=== PATIENT | female | born 1995 | race Two or more races ===

== ENCOUNTER 2021-04-17 10:11 | Emergency (ER) | payer SELFPAY ==
[~2021-04-17] VITALS: Ht 154.9 cm; Wt 52.2 kg
[2021-04-17] MEDS ORDERED: METHADONE HCL 10 MG TAB PO ONE (11:15)
[2021-04-17] MEDS ORDERED: SODIUM CHLORIDE 0.9% 1,000 ML IV ONE (11:15)
[2021-04-17] MEDS ORDERED: ONDANSETRON HCL 4 MG/2 ML VIAL IV ONE (11:15)
[2021-04-17 11:38] LABS: Basophils # (auto) 0 10 ^3/uL (0-0.2); Basophils % (auto) 0.4 % (0.0-2.0); Eosinophils # (auto) 0 10 ^3/uL (0-0.8); Eosinophils % (auto) 0.1 % (0.0-7.0); Hematocrit 42.2 % (36.0-46.0); Hemoglobin 14.8 g/dL (12.2-16.2); Lymphocytes # (auto) 1.2 10 ^3/uL (0.4-5.4); Lymphocytes % (auto) 11.5 % (10.0-50.0); Mean Corpuscular Hemoglobin 30.3 pg (28.0-32.0); Mean Corpuscular Hgb Conc. 35.2 g/dL (32.0-36.0); Monocytes # (auto) 0.7 10 ^3/uL (0-1.3); Neutrophils # (auto) 8.1 10 ^3/uL (1.6-8.6); Nucleated Red Blood Cells % 0.2 %; Red Blood Cells 4.91 10^6/uL (4.0-5.20); Red Cell Distribution Width 13.3 % (11.8-14.3)
[2021-04-17 11:47] LABS: Albumin 4.1 g/dL (3.4-5.0); Calcium 10.3 mg/dL (8.5-10.1); Potassium 3.3 mmol/L (3.5-5.1)
[2021-04-17 11:50] LABS: BUN/Creatinine Ratio 10.1; Bilirubin, Total 0.2 mg/dL (0.2-1.0); Total Protein 9.7 g/dL (6.4-8.2)
[2021-04-17 13:41] VITALS: BP 123/77
== END 2021-04-17 14:33 | disposition home or self-care (01) ==
LOC: ER 10:11
DX: F11.23 Opioid dependence with withdrawal (principal); R11.10 Vomiting, unspecified
CPT/HCPCS: 36415; 80053; 83690; 84702; 85025; 96361; 96374; 99285; J2405; J7030